=== PATIENT | female | born 1940 | race Caucasian/White ===

== ENCOUNTER 2017-12-26 06:05 | Emergency (ER) | payer MEDICARE, OTHER ==
[~2017-12-26] VITALS: Ht 165.1 cm; Wt 69.0 kg
[~2017-12-26 06:05] MED LIST: B COMPLEX1 EACH PO; CALCIUM500 MG PO; CIPRO500 MG PO; DAILY VITE1 EACH PO; ECOTRIN81 MG PO; GEMFIBROZIL600 MG PO; LEVOTHYROXINE88 MCG PO; LIOTHYRONINE SO5 MCG PO; LOSARTAN POTASS50 MG PO; MACROBID 100 M100 MG PO; MAGNESIUM400 MG PO; NIASPAN500 MG PO; NORCO 5-325 TA1 EACH PO; OMEPRAZOLE20 MG PO; PROZAC10 MG PO; PYRIDIUM200 MG PO; SYSTANE GEL EYE10 ML OP; VITAMIN D5000 UNIT PO; ZN-PLUS-PROTEIN15 MG PO
[2017-12-26] MEDS ORDERED: NAMENDA5 MG PO (06:53)
[2017-12-26] MEDS ORDERED: SYNTHROID88 MCG PO (06:53)
--- NOTE | 2017-12-26 11:02 | EKG ---
[facility] [address] [facility] [place] [address] Signed Sinus rhythm with 1st degree AV block Otherwise normal ECG No previous ECGs available Confirmed by SANDEEP MAIER MD ([id number]) on 12/26/2017 11:02:38 AM Electronically Signed By: SANDEEP MAIER MD 12/26/17 1102 PATIENT NAME: JEWELS GRIJALVA RANDY Electrocardiogram DATE OF : 42 PHYSICIAN: SANDEEP MAIER MD REPORT #: [id number] REPORT IS CONFIDENTIAL AND NOT TO BE RELEASED WITHOUT AUTHORIZATION
== END 2017-12-26 07:50 | disposition home or self-care (01) ==
LOC: ED 06:05
DX: R56.9 Unspecified convulsions (principal); E03.9 Hypothyroidism, unspecified; I10 Essential (primary) hypertension; Z88.2 Allergy status to sulfonamides; Z88.8 Allergy status to other drugs, medicaments and biological substances; Z88.5 Allergy status to narcotic agent; Z79.899 Other long term (current) drug therapy
CPT/HCPCS: 70450; 80053; 84484; 85025; 93005; 93010; 99284